=== PATIENT | male | born 1955 | race Caucasian/White ===

== ENCOUNTER 2017-01-14 22:01 | Inpatient (IN) | payer MEDICARE, OTHER ==
[~2017-01-14] VITALS: Ht 165.1 cm; Wt 156.0 kg
--- NOTE | ~2017-01-14 | CON ---
PATIENT'S NAME: ANGELA GREENE [facility] AGE: 61 Y [address] ROOM: [place] [address] LOCATION: GICU ADMIT DATE: 01/15/2017 Consultation DISCHARGE DATE: FAMILY PHYSICIAN: Woody Hay MD ATTENDING PHYSICIAN: Konstantin Treadwell DATE OF CONSULTATION: 01/15/2017 REASON FOR CONSULT: Groin rash. HISTORY OF PRESENT ILLNESS: This is a 61-year-old male patient who was admitted to [facility] with hyperglycemia, a subdural hematoma, and a previous fall. The patient was transferred from [facility] after an apparent fall. The patient did not know he had diabetes. His A1c on admission is 12.3%. He does have an extensive intertriginous rash to his abdominal and groin folds. He does not know how long it has been there. He does report using some treatment to the site at home, but is unable to remember. His is not sure what treatment he is talking about. He admits that the area is slightly painful. He also complains of generalized pain, including back pain. He denies fevers. He appears lethargic. He denies numbness or tingling. PAST MEDICAL HISTORY: Chronic lower back pain, opioid dependence, morbid obesity, recently diagnosed diabetic with hospital admission A1c of 12.3, obstructive sleep apnea, osteoarthritis, and GERD. PAST SURGICAL HISTORY: Bowel resection, right ankle surgery, lower back fusion, rhinoplasty, and gallstone removal. SOCIAL HISTORY: The patient lives with his in [place]. He is a former smoker and quit in 1986. 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 No alcohol abuse noted. ALLERGIES: NO KNOWN DRUG ALLERGIES. THE PATIENT IS ALLERGIC TO SELECT BODY SOAPS AND LAUNDRY DETERGENT. CURRENT MEDICATIONS: Please refer to the medication administration record. PHYSICAL EXAMINATION: PATIENT'S NAME: ANGELA GREENE [facility] AGE: 61 Y [address] ROOM: [place] [address] LOCATION: GICU ADMIT DATE: 01/15/2017 Consultation DISCHARGE DATE: FAMILY PHYSICIAN: Woody Hay MD ATTENDING PHYSICIAN: Konstantin Treadwell VITAL SIGNS: Temperature 97.6, pulse 103, respirations 29, blood pressure 124/49, and pulse oximetry 96% on 5 L. Height 5 feet 5 inches and weight 144.4 kg. GENERAL: The patient does respond to questions, but falls asleep. Appears lethargic. Appears as an obese, elderly man. HEENT: Anicteric sclerae. Poor dentition. NECK: Large and obese. NEUROLOGICAL: Deferred. EXTREMITIES: +2 pedal pulses. Dark staining to legs. Capillary refill intact. Toenails are not thick or mycotic. Really, no edema noted, but large calf circumferences. SKIN: Diffuse red abdomen and groin fold rash. Scattered skin denudement areas revealing red erosions. Small serous exudate. Left side has evidence of red scarring. Slight odor noted. Appears to be slightly tender with touch. Area also appears slightly macerated. Buttocks intact. Heels intact. LABORATORY DATA: Sodium 158, potassium 4.5, chloride 125, bicarbonate 27, creatinine 2.0, and BUN 38. Albumin 2.7. Glucose 808. GFR 34. Hemoglobin A1c 12.3. ASSESSMENT AND PLAN: Again, this is a 61-year-old male patient who was admitted to [facility] with hyperglycemia, a subdural hematoma, and a fall. Wound Care to evaluate a groin rash. Intertriginous abdominal and groin fold rash with superimposed candidiasis infection. Rash secondary to the patient's large body habitus, large abdominal pannus, and new diagnosis of diabetes. Appears to have an underlying fungal rash. We will increase nystatin to 3 times a day and switch to ointment for further penetration. I instructed nursing to cleanse folds with Hibiclens prior to application and dry thoroughly. After ointment application, nursing is to apply wash cloths to folds. It is helpful the patient has a Tran catheter in for moisture control. Discussed with pharmacy ordering Domeboro astringent solution if no improvement is noted. Also, if no improvement is noted, the patient may benefit from a renal-dosed fluconazole. The patient is already on antibiotic therapy. I will continue to follow and make recommendations as needed. I would like to thank Dr. Treadwell for this consult. FARRAH MARTINEZ K MORALES, MD PATIENT'S NAME: ANGELA GREENE [facility] AGE: 61 Y [address] ROOM: [address] [address] LOCATION: [facility] ADMIT DATE: 01/15/2017 Consultation DISCHARGE DATE: FAMILY PHYSICIAN: Woody Hay MD ATTENDING PHYSICIAN: Konstantin Treadwell /[id number] d: 01/15/17 1703 t: 01/23/17 1318, CONSULTATION REPORT
--- NOTE | ~2017-01-14 | HP ---
PATIENT'S NAME: ANGELA GREENE [facility] AGE: 61 Y [address] ROOM: [address] [place] [id number] LOCATION: [facility] ADMIT DATE: 01/15/2017 History & Physical DISCHARGE DATE: FAMILY PHYSICIAN: Woody Hay MD ATTENDING PHYSICIAN: Konstantin Treadwell DATE OF SERVICE: CHIEF COMPLAINT: Hyperglycemia in the setting of acute encephalopathy. HISTORY OF PRESENTING ILLNESS: This 61-year-old male with history of morbid obesity and chronic low back pain with chronic opioid dependence, was transferred to [facility] from [place] after an apparent fall, which occurred earlier today at home. His had left for work around 1:00 p.m. She states that he was still in bed at that time. When she returned home after 5 o'clock, she found him on the floor. He was weak, lethargic, and confused. EMS services were dispatched, and he was taken to the [place] [facility]. While he was there, his blood sugar was found to be 992. He does not have any previous documented history of diabetes. Additionally, a head CT scan revealed the presence of small subdural hematoma. Because of the need for neurosurgical evaluation, it was requested that he be transferred here for definitive evaluation and management. He did have fluids and an insulin drip initiated prior to transfer here. On his arrival, he is complaining of generalized pain "all over." He really can not specify. He does not recall falling today but admits that he had found himself on the floor. He cannot relate any specific details about that. He denies headache pain, denies dizziness, and denies nausea. He denies any significant chest pain and denies significant shortness of breath. He does, however, relate that "everything else hurts." He denies numbness or tingling in his extremities but does feel generally weak. He relates that he normally walks unassisted. His appetite has been good as of late. He does not think that he has had anything to eat today and complains of feeling hungry now. He requests "root beer." He can not recall the last time that he stooled and indicates that he voids "without any problems." ALLERGIES: NO KNOWN DRUG ALLERGIES. PATIENT'S NAME: ANGELA GREENE [facility] AGE: 61 Y [address] ROOM: [address] [address] LOCATION: [facility] ADMIT DATE: 01/15/2017 History & Physical DISCHARGE DATE: FAMILY PHYSICIAN: Woody Hay MD ATTENDING PHYSICIAN: Konstantin Treadwell ILLNESSES: 1. Chronic low back pain. 2. Opioid dependence. 3. Morbid obesity. CURRENT MEDICATIONS: [place] 5/325 p.r.n. FAMILY HISTORY: Negative for heart attack or stroke. SOCIAL HISTORY: He is and lives in [place]. He is a lifelong nonsmoker. There is no significant history of alcohol use. REVIEW OF SYSTEMS: As per HPI. All other organ systems reviewed in limited fashion and are negative. OBJECTIVE: VITAL SIGNS: Temperature 97.8, pulse 114, respirations 24, blood pressure 129/77, O2 saturation 95% on room air. GENERAL: He is ill appearing, disheveled, demonstrates very poor hygiene, lying in the bed, in no acute distress. He is oriented x1 only. SKIN: Supple, brown, warm, and dry. There is a diffuse monilial appearing rash overlying the trunk and in the intertriginous areas, beneath the breast, and in the groin. There is some macerated areas and some areas of excoriation, but no deep ulcerations. No bleeding. HEENT: Otherwise, normocephalic. Sclerae nonicteric. Pupils are equal and round, 2 to 3 mm, very slow to react to light. Extraocular movements appear intact. Nasal turbinates normal in appearance. Oropharynx is clear. Mucous membranes are pink and moist. Dentition appears in poor age-related repair. NECK: Supple, plethoric, and obese. No masses. No adenopathy. No thyromegaly. No JVD. CHEST: Wall is symmetrical. HEART: Tachycardic but regular without murmurs. LUNGS: Diminished at the bases. No crackles or wheezes are heard. ABDOMEN: Soft, morbidly obese. No masses or hepatosplenomegaly. and RECTAL: Exam shows normal male external genitalia. Tran catheter is in place. EXTREMITIES: Display 1 to 2+ pitting edema. No cyanosis. NEUROLOGICAL: Mentation is slowed, but there are no focal deficits. LABORATORY AND X-RAY DATA: From [place], a CBC showed a white blood cell count 8.3, hemoglobin of PATIENT'S NAME: ANGELA GREENE [facility] AGE: 61 Y [address] ROOM: [address] [place], [place] [address] LOCATION: [facility] ADMIT DATE: 01/15/2017 History & Physical DISCHARGE DATE: FAMILY PHYSICIAN: Woody Hay MD ATTENDING PHYSICIAN: Konstantin Treadwell 13.1, hematocrit 44, platelets 120. Chemistries revealed BUN and creatinine of 42 and 2.38, sodium and potassium of 149 and 5.1, chloride and CO2 of 106 and 23 respectively. AST and ALT of 278 and 113 respectively, bilirubin is 1.1. TSH was low at 0.146. Magnesium level was 3.2. Urinalysis was essentially unremarkable. Venous blood gas revealed a pH of 7.32. Ketones were 0.9. INR was 1.4. Cardiac enzymes revealed a CPK of 7690, CK-MB 15.6, and troponin I of 0.10. ASSESSMENT AND PLAN: 1. Hyperglycemic hyperosmolar nonketotic state. We will admit to inpatient care. I placed him on HHNK pathway. He is receiving an insulin drip. We will plan to continue with aggressive hydration and insulin management per the pathway. We will follow his electrolytes serially and make corrections as necessary. Continue with supportive cares and monitor. 2. Systemic inflammatory response syndrome. He is not clearly septic. There is some concern for pulmonary cellulitic skin infection of the lower extremities. Blood cultures have been obtained in [place], and we will follow up on those when the results are known. We will initiate broad-spectrum antibiotic therapy with Zosyn and follow his lactate serially as well. Continue with aggressive hydration as above. 3. Acute encephalopathy, toxic metabolic. Continue with supportive cares as above. Aggressive management of hyperglycemia and careful correction of his electrolyte imbalances as necessary. 4. Rhabdomyolysis. We will follow enzymes serially. Continue with aggressive fluid hydration as above. 5. Acute kidney injury. It is not clear if he has underlying chronic kidney disease or not. He appears to be mildly prerenal. We will continue with hydration as above and follow this serially. 6. Morbid obesity. We will need to work on some long-term strategies for weight loss including calorie reduction, increased exercise, etc. 7. Moderate protein-calorie malnutrition. Encourage balanced dietary intake as above. We will request dietary to see him tomorrow. 8. Yeast dermatitis. We will request wound ostomy care nursing to see him. Continue with local wound care for now, and we will start some topical nystatin. Also IV antibiotic therapy as above. 9. Deep venous thrombosis prophylaxis. We will follow the VTE protocol. Total time spent 60 minutes, of which 60 minutes was critical care time. MD BRAYAN LANG/chip PATIENT'S NAME: ANGELA GREENE [facility] AGE: 61 Y [address] ROOM: [place] [address] LOCATION: [facility] ADMIT DATE: 01/15/2017 History & Physical DISCHARGE DATE: FAMILY PHYSICIAN: Woody Hay MD ATTENDING PHYSICIAN: Konstantin Treadwell /[id number] D: [id number] T: [id number] HISTORY & PHYSICAL
--- NOTE | ~2017-01-14 | CON ---
PATIENT'S NAME: ANGELA GREENE [facility] AGE: 61 Y [address] ROOM: [address] [place], [place] [address] LOCATION: GPCU ADMIT DATE: 01/15/2017 Consultation DISCHARGE DATE: FAMILY PHYSICIAN: Woody Hay MD ATTENDING PHYSICIAN: Konstantin Treadwell DATE OF CONSULTATION: 01/15/2017 REFERRING PHYSICIAN: SERJIO PEREZ MD This is a [facility] nephrology consultation. REASON FOR CONSULTATION: Hypernatremia, NEELA. HISTORY OF PRESENT ILLNESS: This is a 61-year-old male who was admitted to [facility] with history of hyperglycemia, questionable subdural hematoma, and previous fall. The patient was transferred from [facility] after his came home from work and found him on the floor. The patient was unable to converse with her to tell him what had been going on. Per the , the patient has had a 2- to 3-week onset of increased urination and thirst. The patient was reportedly urinating approximately every 20 minutes per the . In [place], the patient was found to have blood sugar of greater than 900 as well as sodium of 149. The patient's creatinine was also noted to be greater than 2 in [place]. While in [place], the patient was initiated on normal saline IV fluid and given a total of 2 L and then started on 250 mL an hour at the time of transfer. Since the admission, the patient has been given approximately 3 L of normal saline. Total free water deficit has been calculated to 14.9 L. Due to the patient's hypernatremia with a current sodium level of 164, Dr. Sequeira in Nephrology has been asked to consult on the patient for further management of his hypernatremia as well as his acute kidney injury. As of current labs, the patient's creatinine has come down to 2.0. PAST MEDICAL HISTORY: As listed above including, 1. Diabetes mellitus. 2. Chronic low back pain. 3. Opioid dependency. 4. Morbid obesity. 5. Obstructive sleep apnea. 6. Osteoarthritis. 7. GERD. PAST SURGICAL HISTORY: 1. Bowel resection. 2. Right ankle surgery. 3. Lower back fusion. 4. Rhinoplasty. 5. Gallstone removal. ALLERGIES: NO KNOWN DRUG ALLERGIES. CURRENT HOME MEDICATIONS: Include, 1. [place] 2 tabs p.o. 2. Hydrocodone 10/325 one tablet p.o. four times a day. SOCIAL HISTORY: The patient does live at home with his in [place]. He is a former smoker and quit in 1986. 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 He denies any alcohol abuse. Denied illicit drug use. PATIENT'S NAME: ANGELA GREENE [facility] AGE: 61 Y [address] ROOM: [id number] [place] [id number] [facility] ADMIT DATE: 01/15/2017 Consultation DISCHARGE DATE: FAMILY PHYSICIAN: Woody Hay MD ATTENDING PHYSICIAN: Konstantin Treadwell REVIEW OF SYSTEMS: Essentially unable to obtain a full review of systems due to the patient's slow cognition. Per the , the patient has had a rash to his abdomen and groin folds. There is also note of increase in thirst and urination per report. The patient also has a history of generalized pain, specifically back pain. Generalized lethargy and fatigue have also been noted. PHYSICAL EXAMINATION: VITAL SIGNS: Blood pressure is 140/71, respirations 27, pulse is 103, temp is 98.0, and saturations are 96% on 5 L nasal cannula. GENERAL: On exam, this is a somnolent male who is in no acute distress. He does respond to questioning, however, falls asleep promptly thereafter. HEENT: His head is normocephalic and atraumatic. Eyes, his pupils are equal and reactive to light and accommodation. Nose is midline. Mouth, poor dentition is noted. NECK: Large, thick, and full. LUNGS: Lung sounds are diminished in the bases bilaterally. The patient is on nasal cannula 5 L/minute. CARDIOVASCULAR: Tachycardic rate and rhythm with an apical heart rate of 101 beats per minute. Unable to appreciate any murmurs, rubs, or thrills. ABDOMEN: Obese, bowel sounds positive and distant. EXTREMITIES: Trace lower extremity edema bilaterally. Bilateral sequentials are placed at the time of exam. SKIN: Notes a diffuse red rash to his abdomen as well as his groin folds. LABORATORY DATA: Sodium 158, potassium 4.5, chloride 125, bicarb 27, creatinine is 2.0, BUN is 38. Albumin is 2.7. Glucose 808. GFR is 34. Hemoglobin A1c is 12.3. ASSESSMENT AND PLAN: 1. Hypernatremia. The patient is going to start D5W at 300 mL an hour. We will check a sodium level at 1500 hours for further recommendations. We are also going to add a urinalysis for urine osmolality, sodium, and potassium. We will monitor strict intake and outputs as well as daily weights. We had previously calculated the patient's free water deficit to be 14.9 L. Goal correction of his sodium would be 8 to 10 mEq in the next 24 hours. We will continue to monitor his serum sodium as well as osmolality closely. 2. Acute kidney injury. This is likely prerenal etiology. The patient's creatinine has now improved to 2.0. Continue IV fluid at this time and monitor strict intake and output. We will continue to avoid all nephrotoxic agents at this time. 3. Diabetic ketoacidosis. Per primary team. This patient has been seen and assessed by Dr. Sequeira. His care is being conducted in consultation with Dr. Sequeira as well as me. We will plan further recommendations as they are forthcoming. In the interim, the patient is to start D5W at 300 mL an hour and we will continue to monitor closely. Further recommendations will be with his next sodium check at 1500 hours. SONJA VARGAS DNP, POLLUTION CONTROL TECHNICIAN FOR [facility] XOCHITL SEQUEIRA MD ENS/modl /[id number] d: 01/17/17 0119 t: 01/24/17 1611, CONSULTATION REPORT
--- NOTE | ~2017-01-14 | ECHO ---
Transthoracic Echocardiography Report (TTE) Demographics Patient Name ANGELA GREENE Date of Study 01/18/2017 Patient Number [id number] Visit Number [id number] Date of 1955 Room Number G6321 Accession Number [id number] Gender Male Age 61 year(s) Referring Mile Landaverde MD Vehicle Technician Pricila Morley RVT Physician Physician Interpreting Delroy Zhoa Tax Credit Leasing Consultant Physician MD Supervising Ordering Physician Meg Smith MD/MLP Nurse Stress Business Applications Specialist Conclusions Summary Technically difficult exam. Overall LV/RV size and systolic function appear grossly normal. Diastolic flow assessment reveals impaired relaxation consistent with Grade I diastolic dysfunction . None of the valves are well visualized, however no e/o significant valvular stenosis or regurgitation based on doppler gradients and color flow. No evidence of pericardial effusion. Procedure Type of Study TTE procedure:2D Echocardiogram. Procedure Date Date: 01/18/2017 Start: 05:32 PM Study Location: Inpatient Portable Technical Quality: Poor visualization due to body habitus. Indications:Dyspnea/SOB. Appropriate Use Criteria: 9 Patient Status: Routine HR: 100 bpm M-Mode/2D Measurements Cardiac Output: 11.09 l/min AO Root Dimension: 2.9 cm LVOT: 2.2 cm LVOT VTI: 29.2 cm LV Stroke volume: 110.94 ml TDI-S': 25.4 cm/s Doppler Measurements AV Peak Velocity: 2.68 m/s MV Peak E-Wave: 0.64 m/s AV Peak Gradient: 28.73 mmHg MV Peak A-Wave: 0.82 m/s AV Mean Gradient: 12 mmHg MV E/A Ratio: 0.78 LVOT Peak Velocity: 1.85 m/s MV P1/2t: 72 msec TR Gradient:13.84 mmHg PV Peak Velocity: 1.68 m/s PV Peak Gradient: 11.29 mmHg E' Septal Velocity: 0.17 m/s E' Lateral Velocity: 0.12 m/s A' Lateral Velocity: 0.15 m/s Findings Left Ventricle Not able to accurately obtain 2d measurements due to technically difficult study. Diastolic assessment reveals Grade I diastolic dysfunction. Right Ventricle Normal right ventricle structure and function. Left Atrium Normal left atrial size. Right Atrium IVC not visualized due to poor subcostal window. Mitral Valve The mitral valve is not well imaged. Mild mitral regurgitation by color Doppler. Aortic Valve The aortic valve was not well imaged. The aortic valve is moderately sclerotic. LVOT peak velocity of 1.85 at rest. Tricuspid Valve The tricuspid valve is not well visualized. Mild tricuspid regurgitation by color Doppler. Pulmonic Valve Normal pulmonic valve structure and function. Pericardial Effusion No evidence of pericardial effusion. Miscellaneous Visualized portions of the aortic root and ascending aorta appear normal in size. Pleural Effusion No evidence of pleural effusion. Contractility Score LV regional wall motion:(0-Non visualized 1-Normal 2-Hypokinesis 3-Akinesis 4-Dyskinesis 5-Aneurysm) Signature dtt: SHAKA CALDERON dtd: 01/18/17 0161 Physician Self Edit
--- NOTE | ~2017-01-14 | CON ---
PATIENT'S NAME: ANGELA GREENE [facility] AGE: 61 Y [address] ROOM: [id number] [place] [id number] LOCATION: GICU ADMIT DATE: 01/15/2017 Consultation DISCHARGE DATE: FAMILY PHYSICIAN: Woody Hay MD ATTENDING PHYSICIAN: Konstantin Treadwell DATE OF CONSULTATION: 01/15/2017 DATE OF SERVICE: 01/15/2017 REFERRING PHYSICIAN: SERJIO PEREZ MD CHIEF COMPLAINT: Morbid obesity, hyperglycemia, confusion, query falx subdural hematoma. CLINICAL HISTORY: The patient is a 61-year-old male patient, who is known to have morbid obesity, chronic low back pain, and chronic opioid dependence, was found confused by his yesterday. He was taken to the Emergency in [place] and further investigations revealed very high blood sugar above 900. Noncontrast CT head was also done and that was suspicious for a small/smear anterior falcine subdural hematoma. I was contacted and reviewed the images. I recommended transferring the patient over under the hospitalist for further medical management of diabetes and observation. I met the patient in the presence of his family in the ICU. The patient was confused at the time of the encounter. He denied history of falls. He denied headaches. He denied weakness on his hands or feet. PAST MEDICAL AND SURGICAL HISTORY: Morbid obesity and chronic low back pain. MEDICATIONS: Listed in the patient's chart. ALLERGIES: LISTED IN THE PATIENT'S CHART. FAMILY HISTORY: Noncontributory to the patient's presentation. SOCIAL HISTORY: The patient is . He denies smoking. No significant history of alcohol use. REVIEW OF SYSTEMS: All points review of systems were asked about. Pertinent positives were mentioned in the HPI. PATIENT'S NAME: ANGELA GREENE [facility] AGE: 61 Y [address] ROOM: [id number] [place] [id number] LOCATION: GICU ADMIT DATE: 01/15/2017 Consultation DISCHARGE DATE: FAMILY PHYSICIAN: Woody Hay MD ATTENDING PHYSICIAN: Konstantin Treadwell PHYSICAL EXAMINATION: GENERAL: The patient was alert. He was confused but awake. HEAD: Atraumatic. Pupils were 3 mm and reactive to light. RESPIRATORY: He was not in any respiratory distress. GAIT: Not done. BACK: Not done. SKIN: It showed evidence of darkening of the skin on his legs. NEUROLOGIC: The patient was alert, awake, oriented only to himself. He was disoriented to place and time. His pupils were 3 mm and reactive. He followed simple commands. He moved all 4 extremities without any obvious weakness. INVESTIGATIONS: Noncontrast CT head done in [place], which I personally reviewed. It showed no evidence of fractures. It showed evidence of thickening of the anterior aspect of the falx cerebri. The area identified as subdural hematoma actually represents thickening of the falx. No evidence of other hematomas. It also showed evidence of subcutaneous metal foreign body in the forehead. IMPRESSION AND PLAN: A 61-year-old male patient, known to have morbid obesity, presumably had a fall yesterday. He was found to have extremely high blood sugar. Noncontrast CT head done in [place] was reported to have a small anterior falx subdural hematoma. Upon reviewing the CT scan, I do not think that area represents subdural hematoma. I think it represents thickening of the falx cerebri. RECOMMENDATIONS: 1. Continue medical management of hyperglycemia/diabetes under the hospitalist. 2. No need for further neuroimaging. 3. Call Neurosurgery as needed. I reviewed the imaging findings with the patient's family. I clearly indicated that the scan did not show any hematomas. I then discussed my plan with them. They asked appropriate questions and those were answered to their satisfaction. It was a pleasure taking care of this patient, and thanks for having us involved. PATIENT'S NAME: ANGELA GREENE [facility] AGE: 61 Y [address] ROOM: [id number] [place] [id number] LOCATION: [facility] ADMIT DATE: 01/15/2017 Consultation DISCHARGE DATE: FAMILY PHYSICIAN: Woody Hay MD ATTENDING PHYSICIAN: Konstantin Treadwell MD AB/chip /[id number] CC: MD Woody Quinones MD d: 01/15/17 1036 t: 01/16/17 1511, CONSULTATION REPORT
--- NOTE | ~2017-01-14 | DS ---
PATIENT'S NAME: ANGELA GREENE [facility] AGE: 61 Y [address] ROOM: [id number] [place], [place] [id number] LOCATION: GPCU ADMIT DATE: 01/15/2017 Discharge Summary DISCHARGE DATE: 01/22/2017 FAMILY PHYSICIAN: Woody Hay MD ATTENDING PHYSICIAN: Konstantin Treadwell PRINCIPAL DIAGNOSES: 1. Hyperosmolar hyperglycemic state. 2. Hypernatremia. 3. Type 2 diabetes, new diagnosis. 4. Decompensated diastolic congestive heart failure. 5. Essential hypertension. 6. Acute encephalopathy. 7. Morbid obesity. HOSPITAL COURSE: Please refer to the initial admission H and P for full history of presentation. The patient was admitted to the Intensive Care Unit initially after presenting with a blood sugar greater than 100 and confused. The patient was started on insulin drip and initial workup also showed a sodium level of 164 and the sodium finding was attributed to be secondary to volume depletion in the setting of hyperglycemia. The patient was given aggressive volume resuscitation and sodium levels were closely monitored and over the next 24 to 48 hours had normalized. Nephrology consultation was obtained during his hospital stay and management of this as well. The patient continued to improve from that standpoint and had been able to also be off insulin drip and is on subcutaneous insulin currently, which he has been on for the past 4 nights, and his blood sugars are in good control. The patient's A1c upon admission was greater than 12 and this is a new diagnosis of diabetes for him. Going forward, the patient is to use insulin in addition to metformin and was seen by our special education paraeducator team and he has been well- educated on how to use insulin. The patient will follow up with his primary care physician for ongoing management of his diabetes. The patient was also participating in physical therapy; and at this point will be discharged home to continue outpatient physical with assistance of Home Health Aide and Social Work team has facilitated this as well. The patient today is in good spirits and is being discharged to home with in satisfactory condition. PHYSICAL EXAMINATION: GENERAL: Today, the patient is awake, alert, and oriented x3 in no acute distress. CHEST: Clear to auscultation bilaterally. HEART: S1, S2, regular rate and rhythm. ABDOMEN: Soft, nontender, nondistended. EXTREMITIES: Without edema. MEDICATIONS: New medications include: PATIENT'S NAME: ANGELA GREENE [facility] AGE: 61 Y [address] [place] [facility] [place] [address] LOCATION: GPCU ADMIT DATE: 01/15/2017 Discharge Summary DISCHARGE DATE: 01/22/2017 FAMILY PHYSICIAN: Woody Hay MD ATTENDING PHYSICIAN: Konstantin Treadwell 1. Levemir 40 units b.i.d. and 8 units of NovoLog with meals. 2. Metformin 500 mg b.i.d. for 1 week and then a 1000 b.i.d. going forward. 3. Lisinopril 5 mg daily. 4. Lasix 20 mg p.o. daily. DISPOSITION: Home and will follow up with primary care physician in 1 week. Greater than 30 minutes were spent in discharge planning and facilitating. MD CARLI WELCH/modl /[id number] d: 01/23/17 0213 t: 01/28/17 1510, DISCHARGE SUMMARY
[2017-01-15 01:47] LABS: ALBUMIN 2.7 gm/dL (3.5-5.0); BLOOD UREA NITROGEN 38 mg/dL (6-24); CALCIUM 8.3 mg/dL (8.5-10.5); CO2 27 mMol/L (22-32); ESTIMATED GFR (MDRD EQUATION) 34; PHOSPHORUS 4.8 mg/dL (2.5-4.9); POTASSIUM 4.5 mMol/L (3.7-5.1)
[2017-01-15 01:48] LABS: ANION GAP 10.5 (10.0-19.0); CHLORIDE 125 mMol/L (96-110); SODIUM 158 mMol/L (135-145)
[2017-01-15 01:50] LABS: MAGNESIUM 3.6 mg/dL (1.8-2.6)
[2017-01-15] MEDS ORDERED: NORCO 10-325 T1 EACH PO (02:37)
[2017-01-15] MEDS ORDERED: ALKA-SELTZER E1 EACH PO (02:39)
[2017-01-15 03:09] LABS: BILIRUBIN URINE NEGATIVE (NEGATIVE); BLOOD URINE 250 /UL (NEGATIVE); COLOR URINE YELLOW (YELLOW); GLUCOSE URINE 1000 mg/dL (NEGATIVE); KETONE URINE NEGATIVE (NEGATIVE); LEUKOCYTES URINE NEGATIVE /UL (NEGATIVE); NITRITE URINE NEGATIVE (NEGATIVE); PROTEIN URINE 15 mg/dL (NEGATIVE); SPEC GRAVITY URINE 1.015 (1.003-1.035); TURBIDITY URINE CLEAR (CLEAR); UROBILINOGEN URINE NORMAL (NORMAL)
[2017-01-15 03:42] LABS: BACTERIA URINE FEW (NEGATIVE); EPITHELIAL URINE 0-2 #/HPF (NEGATIVE); MUCUS URINE 1+ (NEGATIVE); WBC URINE 0-2 #/HPF (NEGATIVE)
[2017-01-15 06:01] LABS: POTASSIUM 3.8 mMol/L (3.7-5.1)
[2017-01-15 06:05] LABS: ANION GAP 7.8 (10.0-19.0)
[2017-01-15 09:55] LABS: POTASSIUM 3.7 mMol/L (3.7-5.1)
[2017-01-15 09:58] LABS: ANION GAP 7.7 (10.0-19.0)
[2017-01-15 12:54] LABS: BASOPHIL % 0.4 %; EOSINOPHIL # 0.1 K/uL (0.0-0.5); EOSINOPHIL % 1.3 %; HEMATOCRIT 40.1 % (37.0-53.0); HEMOGLOBIN 12.9 g/dL (12.0-17.0); IMMATURE GRANULOCYTE % 0.2 %; LYMPHOCYTE % 22.6 %; MCH 33.7 pg (27.0-34.0); MCHC 32.2 gm/dL (32.0-36.5); MCV 104.7 fl (83.0-98.0); MONOCYTE # 0.7 K/uL (0.0-1.0); MPV 11.9 fl (9.4-12.4); NEUTROPHIL % 67.5 %; NRBC % 0 /100WBC (0-0.00); PLATELET COUNT 105 K/uL (150-450); RBC 3.83 M/uL (4.00-6.00); RDW-CV 13.8 % (11.9-14.6); WBC 8.9 K/uL (4.0-11.0)
[2017-01-15 15:33] LABS: POTASSIUM 3.5 mMol/L (3.7-5.1)
[2017-01-15 15:38] LABS: ANION GAP 7.5 (10.0-19.0)
[2017-01-15 21:25] LABS: ALBUMIN 2.4 gm/dL (3.5-5.0); CALCIUM 7.9 mg/dL (8.5-10.5); CREATININE 1.3 mg/dL (0.6-1.3); POTASSIUM 3.4 mMol/L (3.7-5.1)
[2017-01-15 21:31] LABS: ANION GAP 9.4 (10.0-19.0)
[2017-01-15 21:33] LABS: PHOSPHORUS 1.8 mg/dL (2.5-4.9)
[2017-01-16 03:36] LABS: ALBUMIN 2.3 gm/dL (3.5-5.0); BLOOD UREA NITROGEN 25 mg/dL (6-24); CALCIUM 7.7 mg/dL (8.5-10.5); CO2 29 mMol/L (22-32); ESTIMATED GFR (MDRD EQUATION) > 60; POTASSIUM 3.2 mMol/L (3.7-5.1)
[2017-01-16 03:53] LABS: ANION GAP 8.2 (10.0-19.0); CHLORIDE 121 mMol/L (96-110); SODIUM 155 mMol/L (135-145)
[2017-01-16 12:38] LABS: POTASSIUM 3.2 mMol/L (3.7-5.1)
[2017-01-16 12:42] LABS: ANION GAP 6.2 (10.0-19.0)
[2017-01-16 18:21] LABS: POTASSIUM 3.8 mMol/L (3.7-5.1)
[2017-01-16 18:23] LABS: ANION GAP 6.8 (10.0-19.0)
[2017-01-17 04:11] LABS: POTASSIUM 4.3 mMol/L (3.7-5.1)
[2017-01-17 04:14] LABS: ANION GAP 8.3 (10.0-19.0)
[2017-01-18 04:18] LABS: BLOOD UREA NITROGEN 19 mg/dL (6-24); CALCIUM 7.6 mg/dL (8.5-10.5); CHLORIDE 115 mMol/L (96-110); CO2 25 mMol/L (22-32); CREATININE 0.7 mg/dL (0.6-1.3); ESTIMATED GFR (MDRD EQUATION) > 60; SODIUM 145 mMol/L (135-145)
[2017-01-18 04:24] LABS: PHOSPHORUS 1.6 mg/dL (2.5-4.9)
[2017-01-18 04:43] LABS: BILIRUBIN URINE NEGATIVE (NEGATIVE); BLOOD URINE 250 /UL (NEGATIVE); GLUCOSE URINE 1000 mg/dL (NEGATIVE); KETONE URINE 15 mg/dL (NEGATIVE); LEUKOCYTES URINE 25 /UL (NEGATIVE); NITRITE URINE NEGATIVE (NEGATIVE); PH URINE 6.5 (4.0-8.0); PROTEIN URINE 30 mg/dL (NEGATIVE); SPEC GRAVITY URINE 1.015 (1.003-1.035); TURBIDITY URINE 1+ (CLEAR); UROBILINOGEN URINE 4 mg/dL (NORMAL)
[2017-01-18 05:05] LABS: COLOR URINE PINK (YELLOW)
[2017-01-18 05:06] LABS: BACTERIA URINE NEGATIVE (NEGATIVE); EPITHELIAL URINE 0-2 #/HPF (NEGATIVE); RBC URINE FULL FIELD #/HPF (NEGATIVE); WBC URINE 0-2 #/HPF (NEGATIVE)
[2017-01-19 04:13] LABS: ANION GAP 8.6 (10.0-19.0); BLOOD UREA NITROGEN 16 mg/dL (6-24); CALCIUM 7.8 mg/dL (8.5-10.5); CHLORIDE 114 mMol/L (96-110); CO2 26 mMol/L (22-32); CREATININE 0.6 mg/dL (0.6-1.3); ESTIMATED GFR (MDRD EQUATION) > 60; POTASSIUM 3.6 mMol/L (3.7-5.1); SODIUM 145 mMol/L (135-145)
[2017-01-19 04:15] LABS: PHOSPHORUS 1.8 mg/dL (2.5-4.9)
[2017-01-20 05:39] LABS: ANION GAP 11.5 (10.0-19.0); BLOOD UREA NITROGEN 13 mg/dL (6-24); CALCIUM 7.7 mg/dL (8.5-10.5); CHLORIDE 112 mMol/L (96-110); CO2 23 mMol/L (22-32); CREATININE 0.5 mg/dL (0.6-1.3); ESTIMATED GFR (MDRD EQUATION) > 60; POTASSIUM 3.5 mMol/L (3.7-5.1); SODIUM 143 mMol/L (135-145)
[2017-01-21 04:26] LABS: BLOOD UREA NITROGEN 13 mg/dL (6-24); CALCIUM 7.6 mg/dL (8.5-10.5); CHLORIDE 112 mMol/L (96-110); CO2 22 mMol/L (22-32); CREATININE 0.5 mg/dL (0.6-1.3); ESTIMATED GFR (MDRD EQUATION) > 60; SODIUM 142 mMol/L (135-145)
[2017-01-21 04:28] LABS: PHOSPHORUS 1.9 mg/dL (2.5-4.9)
[2017-01-22 05:26] LABS: ALBUMIN 1.9 gm/dL (3.5-5.0); ANION GAP 9.8 (10.0-19.0); BLOOD UREA NITROGEN 10 mg/dL (6-24); CALCIUM 7.7 mg/dL (8.5-10.5); CHLORIDE 109 mMol/L (96-110); CO2 26 mMol/L (22-32); CREATININE 0.5 mg/dL (0.6-1.3); ESTIMATED GFR (MDRD EQUATION) > 60; PHOSPHORUS 2.9 mg/dL (2.5-4.9); POTASSIUM 3.8 mMol/L (3.7-5.1); SODIUM 141 mMol/L (135-145)
[2017-01-22] MEDS ORDERED: LASIX20 MG PO (12:04)
[2017-01-22] MEDS ORDERED: PRINIVIL (ZESTRI5 MG PO (12:05)
[2017-01-22] MEDS ORDERED: GLUCOPHAGE500 MG PO (12:06)
[2017-01-22] MEDS ORDERED: GLUCOPHAGE1000 MG PO (12:07)
[2017-01-22] MEDS ORDERED: LEVEMIR FL100 UNIT/1 SUB-Q (12:09)
[2017-01-22] MEDS ORDERED: NOVOLOG FL100 UNIT/1 SUB-Q (12:10)
== END 2017-01-22 13:09 | disposition disaster alternative care site (69) | DRG 637 ==
LOC: GICU 22:01 → GPCU 01-16 17:38
PROVIDERS: Internal Medicine; Internal Medicine Nephrology; Nurse Practitioner; ADMIT Family Medicine
PROC: B246ZZZ Ultrasonography of Right and Left Heart (ICD-10-PCS; principal; 2017-01-18)
DX: E11.01 Type 2 diabetes mellitus with hyperosmolarity with coma (principal); G93.40 Encephalopathy, unspecified; I50.31 Acute diastolic (congestive) heart failure; N17.9 Acute kidney failure, unspecified; E87.0 Hyperosmolality and hypernatremia; R65.10 Systemic inflammatory response syndrome (SIRS) of non-infectious origin without acute organ dysfunction; M62.82 Rhabdomyolysis; I11.0 Hypertensive heart disease with heart failure; E44.0 Moderate protein-calorie malnutrition; Z68.43 Body mass index [BMI] 50.0-59.9, adult; B37.2 Candidiasis of skin and nail; E11.65 Type 2 diabetes mellitus with hyperglycemia; E66.01 Morbid (severe) obesity due to excess calories; E87.6 Hypokalemia; Z23 Encounter for immunization
CPT/HCPCS: G0009; J1644; J1940; J2405; J2543; J3480; J7040; J7050; J7060